=== PATIENT | female | born 1995 | race Caucasian/White ===

== ENCOUNTER 2019-12-25 08:39 | Day surgery (SDC) | payer BC ==
[~2019-12-25] VITALS: Ht 175.3 cm; Wt 69.5 kg
[2019-12-25 09:10] VITALS: BP 122/88; PULSE 62; TEMP 97.7
[2019-12-25 11:10] VITALS: BP 113/96; PULSE 60; TEMP 97.2
--- NOTE | 2019-12-25 11:10 | NUR ---
Pt to [facility] via cart from [facility]. Pt drowsy, but awake. Pt ambulates to recliner with stand by assistance. Warm blanket provided. Water and pudding given per pt request. Will continue to monitor. Call light within reach.
[2019-12-25] MEDS ORDERED: PROTONIX 40MG T40 MG PO (11:11)
[2019-12-25] MEDS ORDERED: birth control PO (11:13)
[2019-12-25 11:25] VITALS: BP 132/80; PULSE 58
--- NOTE | 2019-12-25 11:25 | NUR ---
Pt tolerating food and fluids without difficulties. Will continue to monitor. Call light within reach.
[2019-12-25 11:40] VITALS: BP 128/76; PULSE 48
--- NOTE | 2019-12-25 11:40 | NUR ---
Pt continues to rest. Denies needs. Call light within reach.
[2019-12-25 11:55] VITALS: BP 121/69; PULSE 51
--- NOTE | 2019-12-25 11:55 | NUR ---
Pt continues to rest. Denies needs. Call light within reach.
[2019-12-25 12:10] VITALS: BP 122/84; PULSE 16
--- NOTE | 2019-12-25 12:10 | NUR ---
Discharge instructions reviewed. Pt voices understanding. IV site discontinued with all parts intact. Pt up to dress. Call light within reach.
--- NOTE | 2019-12-25 12:25 | NUR ---
Pt escorted to private car via wheel chair. Pt accompanied home by her friend.
== END 2019-12-25 12:25 | disposition home or self-care (01) ==
LOC: SDCO 08:39
DX: K21.9 Gastro-esophageal reflux disease without esophagitis (principal); R19.5 Other fecal abnormalities; R10.9 Unspecified abdominal pain; K64.8 Other hemorrhoids; K62.89 Other specified diseases of anus and rectum; Q39.8 Other congenital malformations of esophagus; Z79.899 Other long term (current) drug therapy
CPT/HCPCS: J1200; J2250; J3010; J7030

== ENCOUNTER → 2020-05-06 | Outpatient (CLI) | payer BC ==
[~2020-05-06] MED LIST: PROTONIX 40MG T40 MG PO; birth control PO
== END ==
LOC: MC.RAD 12:54
DX: N63.41 Unspecified lump in right breast, subareolar (principal)

== ENCOUNTER 2020-05-19 09:56 | Day surgery (SDC) | payer BC ==
[~2020-05-19] VITALS: Ht 175.3 cm; Wt 65.4 kg
[~2020-05-19 09:56] MED LIST changes: +ALDACTONE 100M100 MG PO
[2020-05-19 10:29] VITALS: BP 120/83; PULSE 84; TEMP 98
[2020-05-19] MEDS ORDERED: NORCO 325 MG-51 TAB PO (11:00)
[2020-05-19 11:01] VITALS: BP 129/83; PULSE 81; TEMP 97.8
[2020-05-19 11:14] VITALS: BP 136/98; PULSE 89
[2020-05-19 11:29] VITALS: BP 129/96; PULSE 72
[2020-05-19 11:44] VITALS: BP 113/76; PULSE 70
--- NOTE | 2020-05-19 13:47 | NUR ---
PT RETURNED FROM OR INTO [facility] PER CART. PT ALERT AND ORIENTATED TO NAME AND PLACE. KNEW THAT SHE HAD SURGERY, LAUGHING AND TALKING TO HER FRIEND.WAS VERY EMOTIONAL AT TIMES, DRESSING DRY AND INTACT. RATES PAIN AT A ZERO ON 0-10 SCALE. LUNGS CLEAR, HRR, BOWELS SOUNDS PRESENT, HYPOACTIVE. IS TOLERATING WATER. WILL CONT TO MONITOR.
--- NOTE | 2020-05-19 13:54 | NUR ---
PT SITTING UP IN BED, STATES FEELING, 'OUT OF IT'. A/OX3. DENIES PAIN. TOLERATING CHOCOLATE PUDDING, BLUEBERRY MUFFIN. DENIES NAUSEA. DRESSING INTACT. WILL CONT TO MONITOR.
--- NOTE | 2020-05-19 13:58 | NUR ---
PT DENIES PAIN OR NAUSEA, UP TO THE BATHROOM INDEPENDENTLY. IV DC'D, TOLERATED WELL. UPPER RIGHT CHEST DRESSING INTACT AND DRY. DISMISSAL INSTRUCTIONS, VOICES UNDERSTANDING. PT TAKEN OUT PER WC TO FRIEND'S CAR. FRIEND DRIVING.
== END 2020-05-19 14:03 | disposition home or self-care (01) ==
LOC: SDCO 09:56
DX: N60.01 Solitary cyst of right breast (principal); K21.9 Gastro-esophageal reflux disease without esophagitis; F32.9 Major depressive disorder, single episode, unspecified; Z20.828 Contact with and (suspected) exposure to other viral communicable diseases; Z79.899 Other long term (current) drug therapy; Z80.7 Family history of other malignant neoplasms of lymphoid, hematopoietic and related tissues; Z82.49 Family history of ischemic heart disease and other diseases of the circulatory system
CPT/HCPCS: J0690; J2250; J2405; J2704; J3010; J7120